=== PATIENT | male | born 1965 | race Caucasian/White ===

== ENCOUNTER → 2022-02-05 13:18 | Outpatient (BNVA) | payer SELFPAY | PROVIDERS: Visit Provider Physician Assistant Medical | DX: Z02.79 Encounter for issue of other medical certificate (principal) ==

== ENCOUNTER 2022-05-15 14:33 | Outpatient (REF) | payer OTHER, SELFPAY ==
[2022-05-15 18:13] LABS: Estimated Average Glucose 97 mg/dL
== END 2022-05-15 14:34 | disposition home or self-care (01) ==
LOC: HO.MANLDS 14:33
PROVIDERS: Visit Provider Internal Medicine
DX: Z00.00 Encounter for general adult medical examination without abnormal findings (principal)
CPT/HCPCS: 36415; 83036

== ENCOUNTER → 2024-02-06 14:34 | Outpatient (BNVA) | payer SELFPAY | PROVIDERS: Visit Provider Physician Assistant Medical | DX: Z02.79 Encounter for issue of other medical certificate (principal) ==